=== PATIENT | female | born 1955 | race American Indian/Alaskan Native ===

== ENCOUNTER 2019-04-12 19:23 | Inpatient (IN) | payer BC, OTHER ==
[2019-04-12] MEDS ORDERED: NACL 0.9% 1000 ML 1,000 ML IV ONE (20:00)
--- NOTE | 2019-04-12 20:12 | Emergency Department Report ---
ED Neuro Deficit HPI - General Chief Complaint: Altered Mental Status Stated Complaint: AMS Time Seen by Provider: 04/12/19 19:59 Source: patient Mode of arrival: Ambulatory Limitations: Physical Limitation - History of Present Illness Initial Comments: [facility] Date of Service: 04/12/2019 19:42:54 Impression: Syncope Comments: 63 yo with syncope. LOC was unwitnessed, so could be syncope v seizure. BP low on EMS arrival, 90s/60s in ED suggestive of a hypotensive event. NIHSS 2 on initial eval, but re-eval NIHSS 0 (LOC questions were incorrect initially, corrected at end of eval). No tPA or MAX indicated as no focal deficits to suggest stroke. If any cerebral ischemia would likely be related to low BP and not a thrombotic process. Metrics: Last Known Well: 04/12/2019 18:00:00 [employer] Notification Time: 04/12/2019 19:41:02 Arrival Time: 04/12/2019 19:23:00 Stamp Time: 04/12/2019 19:42:54 Time First Login Attempt: 04/12/2019 19:46:00 Video Start Time: 04/12/2019 19:46:00 Symptoms: Dizziness, syncope NIHSS Start Assessment Time: 04/12/2019 19:54:00 Patient is not a candidate for tPA. Patient was not deemed candidate for tPA thrombolytics because of Syncope/hypotension, not stroke. Video End Time: 04/12/2019 20:02:00 CT head showed no acute hemorrhage or acute core infarct. CT head was reviewed. Advanced imaging was not obtained as the presentation was not suggestive of La rge Vessel Occlusive Disease. ER physician notified of the decision on thrombolytics management. Our recommendations are outlined below. Recommendations: BP control per ED team Recommended Scan: MRI Head Without Contrast Lipid Panel to Be Obtained, if Not Done in the Last Three Months Therapies: Physical Therapy, Occupational Therapy, Speech Therapy Assessment When Applicable Dysphaghia Screen: Swallow Evaluation, Bedside DVT prophylaxis: Lovenox or LMW Heparin Disposition: Sign Out Sign Out: Discussed with Emergency Department Provider History of Present Illness: Patient is a 63 years old Female. Patient was brought by EMS for symptoms of Dizziness, syncope 63 yo was in usual state of health today, had dinner and PM meds and reported to family at 1800 feeling dizzy. She went to lay down, and about 15 min later family heard a fall. She was found on the ground unresponsive, and EMS called. Waking up after a few minutes, but confused. Report was low BP and on arrival to ER 90s/60s. No focal weakness reported. CT head showed no acute hemorrhage or acute core infarct. CT head was reviewed. Examination: 1A: Level of Consciousness - Alert; keenly responsive + 0 1B: Ask Month and Age - Could Not Answer Either Question Correctly + 2 1C: Blink Eyes & Squeeze Hands - Performs Both Tasks + 0 2: Test Horizontal Extraocular Movements - Normal + 0 3: Test Visual [place] - No Visual Loss + 0 4: Test Facial Palsy (Use Grimace if Obtunded) - Normal symmetry + 0 5A: Test Left Arm Motor Drift - No Drift for 10 Seconds + 0 5B: Test Right Arm Motor Drift - No Drift for 10 Seconds + 0 6A: Test Left Leg Motor Drift - No Drift for 5 Seconds + 0 6B: Test Right Leg Motor Drift - No Drift for 5 Seconds + 0 7: Test Limb Ataxia (FNF/Heel-Cunha) - No Ataxia + 0 8: Test Sensation - Normal; No sensory loss + 0 9: Test Language/Aphasia - Normal; No aphasia + 0 10: Test Dysarthria - Normal + 0 11: Test Extinction/Inattention - No abnormality + 0 NIHSS Score: 2 Patient was informed the Neurology Consult would happen via TeleHealth consult by way of interactive audio and video telecommunications and consented to receiving care in this manner. Due to the immediate potential for life-threatening deterioration due to underlying acute neurologic illness, I spent 35 minutes providing critical care. This time includes time for face to face visit via telemedicine, review of medical records, imaging studies and discussion of findings with providers, the patient and/or family. Dr Felipe Ashton [facility] - Related Data Allergies/Adverse Reactions: Allergies Allergy/AdvReac Type Severity Reaction Status Date / Time No Known Allergies Allergy Unverified 04/12/19 19:47 ED Review of Systems ROS: Stated complaint: AMS Other details as noted in HPI ED Past Medical Hx - Past Medical History Previous Medical History?: Yes Hx Hypertension: Yes Hx Heart Attack/AMI: Yes Hx Congestive Heart Failure: Yes Hx COPD: Yes - Surgical History Additional Surgical History: pacemaker/defibrilator. - Social History Smoking Status: Current Every Day Smoker Substance Use Type: None ED Neuro Physical Exam - General Limitations: Physical Limitation Suspected Stroke: Yes - NIHSS Assessment Interval: Baseline 1a. Level of Consciousness: alert/keenly responsive 1b. LOC Questions: answers no questions correctly 1c. LOC Commands: performs tasks correctly 2. Best Gaze: normal 3. Visual: no visual loss 4. Facial Palsy: normal symmetrical movement 5b. Motor Arm Right: no drift 5a. Motor Arm Left: no drift 6a. Motor Leg Left: no drift 6b. Motor Leg Right: no drift 7. Limb Ataxia: absent 8. Sensory: normal 9. Best Language: no aphasia 10. Dysarthria: normal 11. Extinction/Inattention: no abnormality Total Score: 2 Stroke Severity: Minor Stroke ED Course Vital Signs 04/12/19 04/12/19 19:43 19:49 Temperature 98.3 F Pulse Rate 79 Respiratory 16 Rate Blood Pressure 151/109 Blood Pressure 87/46 [Right] O2 Sat by Pulse 98 Oximetry - Lab Data Result diagrams: 04/12/19 20:05 Lab Results 04/12/19 04/12/19 04/12/19 Range/Units 20:05 20:05 20:12 PT 13.0 (12.2-14.9) Sec. INR 1.01 (0.87-1.13) APTT 27.1 (24.2-36.6) Sec. Thrombin Time 16.6 (15.1-19.6) Sec. Sodium 137 (137-145) mmol/L Potassium 3.3 L (3.6-5.0) mmol/L Chloride 97.4 L (98-107) mmol/L Carbon Dioxide 29 (22-30) mmol/L Anion Gap 14 mmol/L BUN 15 (7-17) mg/dL Creatinine 1.2 (0.7-1.2) mg/dL Estimated GFR 55 ml/min BUN/Creatinine Ratio 13 % Glucose 125 H (65-100) mg/dL Calcium 8.6 (8.4-10.2) mg/dL Troponin T < 0.010 (0.00-0.029) ng/mL Plasma/Serum Alcohol (0-0.07) % 04/12/19 Range/Units 20:12 PT (12.2-14.9) Sec. INR (0.87-1.13) APTT (24.2-36.6) Sec. Thrombin Time (15.1-19.6) Sec. Sodium (137-145) mmol/L Potassium (3.6-5.0) mmol/L Chloride (98-107) mmol/L Carbon Dioxide (22-30) mmol/L Anion Gap mmol/L BUN (7-17) mg/dL Creatinine (0.7-1.2) mg/dL Estimated GFR ml/min BUN/Creatinine Ratio % Glucose (65-100) mg/dL Calcium (8.4-10.2) mg/dL Troponin T (0.00-0.029) ng/mL Plasma/Serum Alcohol < 0.01 (0-0.07) % Critical care attestation.: If time is entered above; I have spent that time in minutes in the direct care of this critically ill patient, excluding procedure time. ED Disposition Clinical Impression: Syncope and collapse Disposition: -09 OP ADMIT IP TO THIS HOSP Is pt being admited?: Yes Condition: Stable Instructions: Syncope (ED) Referrals: HANNA BACA MD [Primary Care Provider] - 3-5 Days
--- NOTE | 2019-04-12 20:15 | Cat Scan Report ---
CT HEAD WITHOUT CONTRAST INDICATION / CLINICAL INFORMATION: neuro deficits <6hrs or sx present upon awakening. Code stroke TECHNIQUE: All CT scans at this location are performed using CT dose reduction for ALARA by means of automated e xposure control. COMPARISON: None available. FINDINGS: HEMORRHAGE: No evidence of intracranial hemorrhage or extra-axial fluid collection. EXTRA-AXIAL SPACES: Cortical sulci, sylvian fissures and basilar cisterns have an unremarkable appear ance. VENTRICULAR SYSTEM: The ventricular system is of normal size and configuration. CEREBRAL PARENCHYMA: No areas of abnormal brain parenchymal attenuation are identified. There is no i ndication of recent infarction. Incidental note is made of physiological basal ganglia calcifications bilaterally. MIDLINE SHIFT OR HERNIATION: There is no mass effect. CEREBELLUM / BRAINSTEM: Brainstem and cerebellum have an unremarkable appearance. INTRACRANIAL VESSELS:No abnormalities are identified on this noncontrast head CT. ORBITS: visualized portions of the orbits have an unremarkable appearance. SOFT TISSUES of HEAD: No significant abnormality. CALVARIUM: Evaluation of bone windows reveals no abnormalities. PARANASAL SINUSES / MASTOID AIR CELLS: Paranasal sinuses are free from inflammatory mucosal disease. Mastoid air cells are normally pneumatized. ADDITIONAL FINDINGS: None. IMPRESSION: 1. Normal head CT without contrast. Code stroke patient: I called a report of this study to Dr. Peguero of the [facility] emergency depar tment at about 1910 Central standard time. The study had been available on the neuroradiology work li st for less than 8 minutes. Signer Name: Chandler Regan MD Signed: 04/12/2019 8:11 PM Workstation Name: [id number]
[2019-04-12 20:31] LABS: INR 1.01 (0.87-1.13); Partial Thromboplastin Time 27.1 Sec. (24.2-36.6)
[2019-04-12 20:33] LABS: BUN/Creatinine Ratio 13; Blood Urea Nitrogen 15 mg/dL (7-17); Calcium 8.6 mg/dL (8.4-10.2); Hemolysis Index 5
[2019-04-12 21:04] LABS: Basophils # (Auto) 0.1 K/mm3 (0.0-0.1); Basophils % (Auto) 1.5 % (0.0-1.8); Eosinophils # (Auto) 0.1 K/mm3 (0.0-0.4); Eosinophils % (Auto) 2.2 % (0.0-4.3); Hematocrit 35.9 % (30.3-42.9); Hemoglobin 11.5 gm/dl (10.1-14.3); Lymphocytes # (Auto) 1.8 K/mm3 (1.2-5.4); Lymphocytes % (Auto) 32.8 % (13.4-35.0); Mean Corpuscular HGB Conc 32 % (30-34); Mean Corpuscular Volume 77 fl (79-97); Monocytes # (Auto) 0.6 K/mm3 (0.0-0.8); Monocytes % (Auto) 11.3 % (0.0-7.3); Platelet Count 187 K/mm3 (140-440); Red Blood Count 4.66 M/mm3 (3.65-5.03); Red Cell Distribution Width 14.4 % (13.2-15.2)
--- NOTE | 2019-04-12 21:07 | Cat Scan Report ---
CT CERVICAL SPINE WITHOUT CONTRAST INDICATION / CLINICAL INFORMATION: Trauma. Patient fell sustaining neck injury. Neck pain. TECHNIQUE: Axial CT images were obtained through the cervical spine. Sagittal and coronal reformatted images wer e produced. All CT scans at this location are performed using CT dose reduction for ALARA by means of automated exposure control. COMPARISON: None available. FINDINGS: ALIGNMENT: Loss of the normal cervical lordosis is noted. No additional abnormalities of alignment ar e identified. VERTEBRAE: No indication of fracture. DISC SPACES: Mild loss of disc height and C4-5 level. Disc height is fairly well maintained elsewhere . INDIVIDUAL LEVEL ANALYSIS: C1-2: A well-corticated accessory ossicle lies immediately inferior to the anterior arch of C1 verteb jesus manuel. C2-3:No abnormality. C3-4: Mild anterior osteophyte formation is noted. Central spinal canal and neuroforamina are adequat elenita maintained. C4-5: Loss of disc height is noted. Prominent anterior and mild posterior osteophyte formation is obs erved. Facet and uncovertebral arthritic changes contribute to severe left-sided and moderate right-s ided neuroforaminal stenosis. Central spinal canal appears adequate in size. C5-6: Prominent anterior osteophyte formation is noted. There appears to be ossification of the poste rior longitudinal ligament along the dorsal aspect of the C5 and C6 vertebrae. Central spinal canal a nd neuroforamina are adequately maintained. C6-7: Anterior osteophyte formation is noted. No additional abnormality. C7-T1: No abnormality. CRANIOCERVICAL JUNCTION:No significant abnormality. SPINAL CANAL: No significant abnormality. PARASPINAL SOFT TISSUES: Calcified atherosclerotic plaque is present in the vicinity of the carotid b ifurcations bilaterally. ADDITIONAL FINDINGS: None. LUNG APICES: No significant abnormality of visualized lungs. IMPRESSION: 1. No indication of fracture or traumatic subluxation. 2. Widespread cervical spondylosis as described level by level above. Signer Name: Chandler Regan MD Signed: 04/12/2019 9:03 PM Workstation Name: [id number]
--- NOTE | 2019-04-12 22:50 | Emergency Department Report ---
ED Syncope HPI - General Chief Complaint: Altered Mental Status Stated Complaint: AMS Time Seen by Provider: 04/12/19 19:59 Source: patient, family Exam Limitations: no limitations - History of Present Illness Initial Comments: Mrs Jackson is a 63 yo female with hx of diabetes mellitus, CHF, COPD who presents with syncope at home. She was in her normal state of health today. Her daughter heard a loud thump. Found her passed out on the floor at home. When she awakened, Mrs. Jackson had lethargy with slurred speech. She has a history of AICD. The AICD did not fire. She did not have preceding lightheadedness or chest pain. She was in her normal state of health. She recently moved from [facility]. Her new PCP is Dr. Lazo. Mrs. Ortega is currently taking to diuretic medications including porosis 20 mg twice a day. She has started care with a new maturity checker recently. She is now taking a little blue pill. She stated that she began to feel ill after taking this new blue pill which is a second diuretic. Timing/Prior Episodes: single episode today Precipitating Factors: Positive: none Context: standing Loss of Consciousness: brief (seconds) Current Symptoms: other (lethargic hypotensive slurred speech) - Related Data Allergies/Adverse Reactions: Allergies No Known Allergies Allergy (Unverified 04/12/19 19:47) Home Medications: Ambulatory Orders Carvedilol [Coreg] 25 mg PO BID 04/12/19 Furosemide [Lasix] 20 mg PO BID 04/12/19 Metformin HCl [metFORMIN] 1,000 mg PO BID 04/12/19 Omeprazole 40 mg PO DAILY 04/12/19 Pregabalin [Lyrica] 50 mg PO BID 04/12/19 raNITIdine HCl [Zantac] 1 tab PO DAILY 04/12/19 ED Review of Systems ROS: Stated complaint: AMS Other details as noted in HPI Comment: All other systems reviewed and negative Constitutional: denies: fever, malaise Respiratory: denies: cough, shortness of breath Cardiovascular: denies: chest pain, palpitations ED Past Medical Hx - Past Medical History Previous Medical History?: Yes Hx Hypertension: Yes Hx Heart Attack/AMI: Yes Hx Congestive Heart Failure: Yes Hx COPD: Yes - Surgical History Additional Surgical History: pacemaker/defibrilator. - Social History Smoking Status: Current Every Day Smoker Substance Use Type: None - Medications Home Medications: Home Medications Medication Instructions Recorded Confirmed Last Taken Type Carvedilol [Coreg] 25 mg PO BID 04/12/19 04/12/19 Unknown History Furosemide [Lasix] 20 mg PO BID 04/12/19 04/12/19 Unknown History Metformin HCl [metFORMIN] 1,000 mg PO BID 04/12/19 04/12/19 Unknown History Omeprazole 40 mg PO DAILY 04/12/19 04/12/19 Unknown History Pregabalin [Lyrica] 50 mg PO BID 04/12/19 04/12/19 Unknown History raNITIdine HCl [Zantac] 1 tab PO DAILY 04/12/19 04/12/19 Unknown History ED Physical Exam - General Limitations: No Limitations, Physical Limitation General appearance: alert, in no apparent distress - Head Head exam: Present: atraumatic, normocephalic - Eye Eye exam: Present: normal appearance - ENT ENT exam: Present: mucous membranes moist - Neck Neck exam: Present: normal inspection, full ROM - Respiratory Respiratory exam: Present: normal lung sounds bilaterally. Absent: respiratory distress, wheezes, rales, rhonchi - Cardiovascular Cardiovascular Exam: Present: regular rate, normal rhythm, normal heart sounds. Absent: systolic murmur, diastolic murmur, rubs, gallop - GI/Abdominal GI/Abdominal exam: Present: soft, normal bowel sounds. Absent: distended, tenderness, guarding, rebound - Extremities Exam Extremities exam: Present: normal inspection - Neurological Exam Neurological exam: Present: alert, oriented X3 - Psychiatric Psychiatric exam: Present: normal affect, normal mood - Skin Skin exam: Present: warm, dry, intact, normal color. Absent: rash ED Course Vital Signs 04/12/19 04/12/19 04/12/19 19:32 19:43 19:49 Temperature 98.3 F Pulse Rate 79 Respiratory 16 16 Rate Blood Pressure 151/109 Blood Pressure 87/46 [Right] O2 Sat by Pulse 98 Oximetry 04/12/19 04/12/19 04/12/19 19:55 20:00 20:01 Temperature Pulse Rate 86 70 Respiratory 14 18 18 Rate Blood Pressure 85/50 96/51 Blood Pressure [Right] O2 Sat by Pulse 95 97 Oximetry 04/12/19 04/12/19 04/12/19 20:15 20:37 20:45 Temperature Pulse Rate 69 66 67 Respiratory 13 16 18 Rate Blood Pressure 106/42 128/32 103/34 Blood Pressure [Right] O2 Sat by Pulse 98 100 Oximetry 04/12/19 04/12/19 04/12/19 21:01 21:15 21:30 Temperature Pulse Rate 66 65 66 Respiratory 11 L 13 22 Rate Blood Pressure 94/39 90/38 99/34 Blood Pressure [Right] O2 Sat by Pulse 98 99 100 Oximetry 04/12/19 04/12/19 04/12/19 21:45 22:00 22:31 Temperature Pulse Rate 67 73 69 Respiratory 16 33 H 17 Rate Blood Pressure 96/43 103/57 111/66 Blood Pressure [Right] O2 Sat by Pulse 98 99 100 Oximetry 04/12/19 23:24 Temperature Pulse Rate 65 Respiratory 18 Rate Blood Pressure Blood Pressure 103/55 [Right] O2 Sat by Pulse 100 Oximetry ED Medical Decision Making - Lab Data Result diagrams: 04/12/19 20:05 04/12/19 20:05 Laboratory Results - last 24 hr 04/12/19 04/12/19 04/12/19 20:05 20:05 20:05 WBC 5.5 RBC 4.66 Hgb 11.5 Hct 35.9 MCV 77 L MCH 25 L MCHC 32 RDW 14.4 Plt Count 187 Lymph % (Auto) 32.8 Bland % (Auto) 11.3 H Eos % (Auto) 2.2 Baso % (Auto) 1.5 Lymph # 1.8 Bland # 0.6 Eos # 0.1 Baso # 0.1 Seg Neutrophils % 52.2 Seg Neutrophils # 2.9 PT INR APTT Thrombin Time 16.6 Sodium 137 Potassium 3.3 L Chloride 97.4 L Carbon Dioxide 29 Anion Gap 14 BUN 15 Creatinine 1.2 Estimated GFR 55 BUN/Creatinine Ratio 13 Glucose 125 H Lactic Acid Calcium 8.6 Troponin T < 0.010 Plasma/Serum Alcohol 04/12/19 04/12/19 04/12/19 20:12 20:12 20:41 WBC RBC Hgb Hct MCV MCH MCHC RDW Plt Count Lymph % (Auto) Bland % (Auto) Eos % (Auto) Baso % (Auto) Lymph # Bland # Eos # Baso # Seg Neutrophils % Seg Neutrophils # PT 13.0 INR 1.01 APTT 27.1 Thrombin Time Sodium Potassium Chloride Carbon Dioxide Anion Gap BUN Creatinine Estimated GFR BUN/Creatinine Ratio Glucose Lactic Acid 1.30 Calcium Troponin T Plasma/Serum Alcohol < 0.01 - EKG Data 04/12/19 22:48 EKG obtained 1932 70 beats a minute normal axis normal intervals no ST elevation nonspecific T wave pattern no signs of ischemia poor R-wave progression in the anterior leads low voltage QRS - Radiology Data Radiology results: report reviewed CT head normal CT cervical spine without acute process My interpretation of chest radiograph AP portable one view: Interstitial fullness cardiac device in place no infiltrate no effusion, prosthesis present in the left shoulder - Medical Decision Making Manuel is a 63-year-old female with history of CHF, COPD, diabetes with AICD in place who presents with syncope and hypotension. No evidence of septic shock, cardiogenic shock. I suspect medication as the cause of hypotension. She was in her normal state of health prior to syncope episode today. No indication clinically of pulmonary embolism. Hypotension resolved with IV fluid therapy. Admitted to Dr. Lazo's service in stable condition to telemetry. Code stroke was initiated upon arrival due to slurred speech. She did have lethargy upon arrival reflective of hypotensive status. I agreed with Teleneurologist that her presentation is indicative of acute illness not acute CVA. I suspect that aggressive diuresis with 2 diuretics is the cause of her hypotension. Critical care attestation.: If time is entered above; I have spent that time in minutes in the direct care of this critically ill patient, excluding procedure time. ED Disposition Clinical Impression: Syncope and collapse, Hypotension, CHF (congestive heart failure) Disposition: OP ADMIT IP TO THIS HOSP Is pt being admited?: Yes Does the pt Need Aspirin: No Condition: Stable - Assessment Assessment Interval: Baseline - Level of Consciousness 1a. Level of Consciousness: alert/keenly responsive - LOC Questions 1b. LOC Questions: answers both correctly - LOC Command 1c. LOC Commands: performs tasks correctly - Best Gaze 2. Best Gaze: normal - Visual 3. Visual: no visual loss - Facial Palsy 4. Facial Palsy: normal symmetrical movement - Motor Arm 5a. Motor Arm Left: no drift 5b. Motor Arm Right: no drift - Motor Leg 6a. Motor Leg Left: no drift 6b. Motor Leg Right: no drift - Limb Ataxia 7. Limb Ataxia: absent - Sensory 8. Sensory: normal - Best Language 9. Best Language: no aphasia - Dysarthria 10. Dysarthria: normal - Extinction and Inattention 11. Extinction/Inattention: no abnormality - Scoring Total Score: 0 Stroke Severity: No Stroke Symptoms
--- NOTE | 2019-04-13 02:19 | XRay Report ---
CHEST 1 VIEW [id number] INDICATION / CLINICAL INFORMATION: hypotension. COMPARISON: None available. FINDINGS: SUPPORT DEVICES: Unipolar transvenous pacer is seen with lead tips appearing to be in satisfactory po sition. HEART / MEDIASTINUM: No significant abnormality. LUNGS / PLEURA: Mild chronic changes are seen in the lung chopra. No areas of consolidation are seen. No pneumothorax. ADDITIONAL FINDINGS: Left shoulder prosthesis is noted. IMPRESSION: No significant acute abnormality Signer Name: Ilya Dawson MD Signed: 04/13/2019 2:15 AM Workstation Name: [id number]
[2019-04-13 05:38] LABS: Amphetamine Screen,Urine PRESUMPTIVE NEGATIVE; Benzodiazepines Screen,Urine PRESUMPTIVE NEGATIVE; Cannabinoid Screen,Urine PRESUMPTIVE NEGATIVE; Cocaine Screen,Urine PRESUMPTIVE NEGATIVE; Methadone Screen,Urine PRESUMPTIVE NEGATIVE; Opiate Screen,Urine PRESUMPTIVE NEGATIVE
--- NOTE | 2019-04-13 08:50 | History and Physical Report ---
History of Present Illness Date of examination: 04/13/19 Date of admission: 04/12/19 22:53 Chief complaint: Syncope - 1 day duration History of present illness: Patient is 63-year-old lady was a history of congestive heart failure status post AICD placement, COPD, asthma, and diabetes mellitus who presented emergency department on account of having passed out on 04/12/2019. Patient stated that she was at home when she started feeling dizzy. Went to lay down in bed at about 4:45 PM. Got up to use the bathroom when she passed out. Her daughter heard a loud noise. Went and found her passed out on the floor at home. When she awakened, she was lethargic with slurred speech. She has a history of AICD. The AICD did not fire. EMS was called in and brought to the emergency department where she regained consciousness. Denies any chest pain or shortness of breath. Denies any orthopnea paroxysmal nocturnal dyspnea. Patient recently moved from [facility] to [place] to leave with his children. Has been following up with a new dumpster driver has started metolazone. Patient stated that she hasn't been feeling well since she started metolazone. On admission to the emergency department blood pressure patient was found to be hypotensive with a blood pressure of 85/50. Patient was given a bolus of normal saline that slightly improved the blood pressure 103/34. Patient was too drowsy. CT scan of the head was unremarkable as well as CT scan of the neck. Had hypokalemia with a potassium of 3.3. ProBNP was 20.8. Initial troponin was normal at less than 0.01. Glucose was elevated at 125. Admission was therefore requested for further management. Past History Past Medical History: COPD, diabetes, heart failure Past Surgical History: Other (AICD placement, left shoulder replacement.) Social history: smoking. denies: alcohol abuse Family history: other (Her mother had COPD and CHF. Father from lung cancer.) Medications and Allergies Allergies Allergy/AdvReac Type Severity Reaction Status Date / Time No Known Allergies Allergy Unverified 04/12/19 19:47 Home Medications Medication Instructions Recorded Confirmed Last Taken Type Carvedilol [Coreg] 25 mg PO BID 04/12/19 04/12/19 Unknown History Furosemide [Lasix] 20 mg PO BID 04/12/19 04/12/19 Unknown History Metformin HCl [metFORMIN] 1,000 mg PO BID 04/12/19 04/12/19 Unknown History Omeprazole 40 mg PO DAILY 04/12/19 04/12/19 Unknown History Pregabalin [Lyrica] 50 mg PO BID 04/12/19 04/12/19 Unknown History raNITIdine HCl [Zantac] 1 tab PO DAILY 04/12/19 04/12/19 Unknown History Active Meds: Review of systems Constitutional: Well Nourished and Well developed. Head: NC/ AT Eyes: Denies any visual impairments. No discharge from the eyes Nose: Denies any rhinorrhea or epistaxis Throats: Denies any post nasal drainage. Ears: Denies any hearing deficits Cardiovascular system: Denies any chest pain, shortness of breath, orthopnea, paroxysmal nocturnal dyspnea, or palpitation. Respiratory system: Denies any cough, difficulty breathing, wheezing, pleuritic chest pain, Gastrointestinal system: Denies any abdominal pain, nausea vomiting, hematemesis or melena. Neurological system: Had syncope No slurred speech, facial droop, lateralizing weakness Genitalia system: Denies any dysuria, urinary frequency or urgency, urethral discharge Skin: No rashes, hyperpigmented spots. Hematological: Denies any cervical tenderness hemorrhages or petechia. Immunological: Denies any multiple septic spots, Lymphatic: Denies any generalized lymphadenopathy. Endocrine: Denies any polyuria, polydipsia, polyphagia. No heat or cold intolerance. Musculoskeletal system: No joint pain or swelling. Psych: No visual, tactile, auditory or hallucination Exam - Physical Exam Narrative exam: Constitutional: Well-nourished well-developed. In no distress Head: Normocephalic atraumatic Eyes: Pupils are equal round and reactive to light Nose: No enlarged turbinates, no septal deviation. Mouth: Angular stomatitis bilaterally. Moist mucous membranes. Neck: Supple no thyromegaly. No bruit. No JVD Heart: Regular rate and rhythm, S1-S2 normal. No rubs murmurs or gallop Lungs: Clear to auscultation bilaterally. no rales or rhonchi Abdomen: Soft, nontender. Bowel sound are present. Extremities: No edema, no cyanosis, no clubbing. Neuro: Alert oriented Oriented x3. No focal sensory or motor deficit. Skin: No rashes or hyperpigmented spots Musculoskeletal system: No joint pain or swelling Hematological: No petechia or subcutanous hemorrhages. Immunological: No multiple septic spots on the skin Lymphatic: No generalized lymphadenopathy Psychiatry: Euthymic. Calm. - Constitutional Vitals: Temp Pulse Resp BP Pulse Ox 97.5 F L 54 L 18 84/36 100 04/13/19 03:33 04/13/19 03:33 04/13/19 03:33 04/13/19 03:33 04/13/19 03:33 Results - Labs CBC & Chem 7: 04/12/19 20:05 04/12/19 20:05 Labs: Abnormal lab results 04/12/19 04/12/19 Range/Units 20:05 20:05 MCV 77 L (79-97) fl MCH 25 L (28-32) pg [place] % (Auto) 11.3 H (0.0-7.3) % Potassium 3.3 L (3.6-5.0) mmol/L Chloride 97.4 L (98-107) mmol/L Glucose 125 H (65-100) mg/dL Assessment and Plan Patient is 63-year-old lady was a history of congestive heart failure status post AICD placement, COPD, asthma, and diabetes mellitus who presented emergency department on account of having passed out on 04/12/2019. Patient stated that she was at home when she started feeling dizzy. Went to lay down in bed at about 4:45 PM. Got up to use the bathroom when she passed out. Her daughter heard a loud noise. Went and found her passed out on the floor at home. When she awakened, she was lethargic with slurred speech. She has a history of AICD. The AICD did not fire. EMS was called in and brought to the emergency department where she regained consciousness. Denies any chest pain or shortness of breath. Denies any orthopnea paroxysmal nocturnal dyspnea. Patient recently moved from [facility] to [place] to leave with his children. Has been following up with a new dumpster driver has started metolazone. Patient stated that she hasn't been feeling well since she started metolazone. On admission to the emergency department blood pressure patient was found to be hypotensive with a blood pressure of 85/50. Patient was given a bolus of normal saline that slightly improved the blood pressure 103/34. Patient was too dr sexton. CT scan of the head was unremarkable as well as CT scan of the neck. Had hypokalemia with a potassium of 3.3. ProBNP was 20.8. Initial troponin was normal at less than 0.01. Glucose was elevated at 125. Admission was therefore requested for further management. - Syncope likely cardiac in origin from hypotension vs none firing of AICD Interrogates the patient's AICD Obtain carotid Doppler and echocardiogram - Systolic heart failure status post AICD placement We will adjust doses of beta blockers, ACEI and gentle diureses because of hypotension Obtain cardiology consult - Hypokalemia supplement and rechecK and Mg - Diabetes mellitus Obtain A1c Low-dose sliding scale insulin Consistent collided diet - COPD Continue bronchodilators O2 sat on room air to be measured If below 90. Commence patient on supplemental oxygen - Bilateral and angular stomatitis Apply Ketoconazole cream after meals and at bedtime - DVT prophylaxis with Lovenox and GI with Pepcid CODE STATUS: Patient is full code Time spent during this admission process is 40 minutes
[2019-04-13] MEDS: PULMICORT IH SCH ×2 (09:22→20:40)
[2019-04-13] MEDS ORDERED: SODIUM CHLORIDE FLUSH SYRINGE 10 ML IV PRN (09:30)
[2019-04-13] MEDS ORDERED: TYLENOL PO PRN (09:30)
[2019-04-13] MEDS ORDERED: ZOFRAN IV PRN (09:30)
[2019-04-13] MEDS ORDERED: NON-FORMULARY (Metformin Hcl [Metformin] 1,000 MG) PO SCH (10:00)
[2019-04-13] MEDS ORDERED: KCL 20MEQ/100ML 20 MEQ/100 ML BAG IV SCH (10:00)
[2019-04-13 10:03] LABS: Basophils # (Auto) 0.1 K/mm3 (0.0-0.1); Basophils % (Auto) 1.9 % (0.0-1.8); Eosinophils # (Auto) 0.1 K/mm3 (0.0-0.4); Eosinophils % (Auto) 2.4 % (0.0-4.3); Hematocrit 36.4 % (30.3-42.9); Hemoglobin 11.7 gm/dl (10.1-14.3); Lymphocytes # (Auto) 1.7 K/mm3 (1.2-5.4); Lymphocytes % (Auto) 33.3 % (13.4-35.0); Mean Corpuscular HGB Conc 32 % (30-34); Mean Corpuscular Volume 76 fl (79-97); Monocytes # (Auto) 0.4 K/mm3 (0.0-0.8); Monocytes % (Auto) 8.3 % (0.0-7.3); Platelet Count 173 K/mm3 (140-440); Red Blood Count 4.76 M/mm3 (3.65-5.03)
[2019-04-13 10:27] LABS: Alanine Aminotransferase 6 units/L (7-56); Albumin 3.7 g/dL (3.9-5); BUN/Creatinine Ratio 17; Blood Urea Nitrogen 12 mg/dL (7-17); Calcium 9.1 mg/dL (8.4-10.2); Hemolysis Index 2
[2019-04-13 10:37] LABS: Chol/HDL Ratio 2.82 %
--- NOTE | 2019-04-13 11:05 | Consultation ---
History of Present Illness Consult date: 04/13/19 Consult reason: syncope History of present illness: Patient is a 63-year old female who recently moved from [facility], who presented with syncope. Patient reports feeling dizzy with chest pain and shortness of breath on yesterday. Patient reports she got up to use the restroom and passed out. Patient has a history of dilated cardiomyopathy and has a [employer] cardiac defibrillator insitu. She denies AICD discharge. Noted hypotensive on present ation, systolic BP at 85. Head CT scan reports no acute intracranial abnormalities. Chest x-ray is negative. An EKG is sinus rhythm with low voltage. Past History Past Medical History: COPD, diabetes, heart failure Past Surgical History: Other (AICD placement, left shoulder replacement.) Social history: smoking. denies: alcohol abuse Family history: other (Her mother had COPD and CHF. Father from lung cancer.) Medications and Allergies Allergies Allergy/AdvReac Type Severity Reaction Status Date / Time No Known Allergies Allergy Unverified 04/12/19 19:47 Home Medications Medication Instructions Recorded Confirmed Last Taken Type Carvedilol [Coreg] 25 mg PO BID 04/12/19 04/12/19 Unknown History Furosemide [Lasix] 20 mg PO BID 04/12/19 04/12/19 Unknown History Metformin HCl [metFORMIN] 1,000 mg PO BID 04/12/19 04/12/19 Unknown History Omeprazole 40 mg PO DAILY 04/12/19 04/12/19 Unknown History Pregabalin [Lyrica] 50 mg PO BID 04/12/19 04/12/19 Unknown History raNITIdine HCl [Zantac] 1 tab PO DAILY 04/12/19 04/12/19 Unknown History Active Meds: Active Medications Acetaminophen (Tylenol) 650 mg PO Q4H PRN PRN Reason: Pain MILD(1-3)/Fever >100.5/BROWN Budesonide (Pulmicort) 0.5 mg IH Q12HRT DEVIKA Last Admin: 04/13/19 09:22 Dose: 0.5 mg Documented by: Carvedilol (Coreg) 3.125 mg PO BID DEVIKA Enoxaparin Sodium (Lovenox) 40 mg SUB-Q QDAY DEVIKA Furosemide (Lasix) 20 mg IV QDAY DEVIKA Potassium Chloride (Kcl 10meq/100ml) 10 meq in 100 mls @ 100 mls/hr IV Q1H DEVIKA Stop: 04/13/19 14:29 Ketoconazole (Nizoral) 1 applic TP BID DEVIKA Metformin HCl (Glucophage) 1,000 mg PO BIDDIAB DEVIKA Ondansetron HCl (Zofran) 4 mg IV Q8H PRN PRN Reason: Nausea And Vomiting Potassium Chloride (K-Dur) 20 meq PO QDAY [facility] Sodium Chloride (Sodium Chloride Flush Syringe 10 Ml) 10 ml IV BID DEVIKA Sodium Chloride (Sodium Chloride Flush Syringe 10 Ml) 10 ml IV PRN PRN PRN Reason: LINE FLUSH Physical Examination Vital Signs Resp 16 04/12/19 19:32 General appearance: no acute distress HEENT: Positive: PERRL Neck: Positive: trachea midline Cardiac: Positive: Reg Rate and Rhythm Lungs: Positive: Decreased Breath Sounds Neuro: Positive: Grossly Intact Extremities: Absent: edema Results 04/13/19 09:38 04/13/19 09:38 Cardiac Enzymes 04/13/19 Range/Units 09:38 AST 12 (5-40) units/L Coagulation 04/12/19 Range/Units 20:12 PT 13.0 (12.2-14.9) Sec. INR 1.01 (0.87-1.13) APTT 27.1 (24.2-36.6) Sec. Lipids 04/13/19 Range/Units 09:38 Triglycerides 87 (2-149) mg/dL Cholesterol 144 (50-199) mg/dL HDL Cholesterol 51 (40-59) mg/dL Cholesterol/HDL Ratio 2.82 % CBC 04/12/19 04/13/19 Range/Units 20:05 09:38 WBC 5.5 5.2 (4.5-11.0) K/mm3 RBC 4.66 4.76 (3.65-5.03) M/mm3 Hgb 11.5 11.7 (10.1-14.3) gm/dl Hct 35.9 36.4 (30.3-42.9) % Plt Count 187 173 (140-440) K/mm3 Lymph # 1.8 1.7 (1.2-5.4) K/mm3 [place] # 0.6 0.4 (0.0-0.8) K/mm3 Eos # 0.1 0.1 (0.0-0.4) K/mm3 Baso # 0.1 0.1 (0.0-0.1) K/mm3 Comprehensive Metabolic Panel 04/12/19 04/13/19 Range/Units 20:05 09:38 Sodium 137 138 (137-145) mmol/L Potassium 3.3 L 3.4 L (3.6-5.0) mmol/L Chloride 97.4 L 99.7 (98-107) mmol/L Carbon Dioxide 29 28 (22-30) mmol/L BUN 15 12 (7-17) mg/dL Creatinine 1.2 0.7 (0.7-1.2) mg/dL Glucose 125 H 98 (65-100) mg/dL Calcium 8.6 9.1 (8.4-10.2) mg/dL AST 12 (5-40) units/L ALT 6 L (7-56) units/L Alkaline Phosphatase 72 (35-129) units/L Total Protein 6.4 (6.3-8.2) g/dL Albumin 3.7 L (3.9-5) g/dL Assessment and Plan Syncope Hx of Dilated CMP Presence of AICD ([employer]) Hypertension but currently hypotensive Recommendations: Resume medical therapy for dilated cardiomyopathy when blood pressure allows. We will get an ICD interrogation. Check a TSH. Obtain a carotid duplex and echocardiogram for LVEF assessment.
[2019-04-13] MEDS ORDERED: NACL 0.9% 1000 ML 1,000 ML ONE ×2 (11:11→18:06)
[2019-04-13] MEDS: LOVENOX SUB-Q SCH (11:38)
[2019-04-13] MEDS: K-DUR PO SCH (11:40)
[2019-04-13] MEDS: KCL 10MEQ/100ML 10 MEQ/100 ML BAG IV SCH ×4 (11:45→18:25)
[2019-04-13] MEDS: NIZORAL TP SCH ×2 (15:04→21:13)
[2019-04-13] MEDS: COREG PO SCH ×2 (15:38→21:14)
[2019-04-13] MEDS: ENTRESTO 49-51 MG PO SCH ×2 (15:38→21:13)
[2019-04-13] MEDS: SODIUM CHLORIDE FLUSH SYRINGE 10 ML IV SCH ×2 (15:39→21:13)
[2019-04-13] MEDS: LASIX IV SCH (15:39)
[2019-04-13] MEDS: GLUCOPHAGE PO SCH (18:24)
[2019-04-14 04:35] LABS: Albumin 3.6 g/dL (3.9-5)
[2019-04-14 05:11] LABS: Mean Corpuscular HGB Conc 30 % (30-34); Mean Corpuscular Volume 80 fl (79-97); Platelet Count 183 K/mm3 (140-440); Red Blood Count 5.11 M/mm3 (3.65-5.03); Red Cell Distribution Width 14.9 % (13.2-15.2)
[2019-04-14 05:13] LABS: Hematocrit 40.7 % (30.3-42.9); Hemoglobin 12.4 gm/dl (10.1-14.3)
[2019-04-14 05:27] LABS: Alanine Aminotransferase 6 units/L (7-56); BUN/Creatinine Ratio 11; Blood Urea Nitrogen 8 mg/dL (7-17); Calcium 9.3 mg/dL (8.4-10.2); Hemolysis Index 14
--- NOTE | 2019-04-14 07:56 | Vascular Lab Report ---
BILATERAL CAROTID DOPPLER ULTRASOUND INDICATION : syncope with collapse TECHNIQUE: Grayscale and color Doppler imaging performed through the neck. COMPARISON: None FINDINGS: Right: There is moderate partially calcified plaque is identified in the carotid bulb. Peak systoli c velocity in the CCA is 58 cm/s with end-diastolic velocity of 19 cm/s. Peak systolic velocity in th e proximal ICA is 83 cm/s with end-diastolic velocity of 35 cm/s. ICA to CCA ratio is less than 2. Th ere is antegrade flow in the ECA and the vertebral artery. Left: There are mild scattered partially calcified plaques in the mid to distal CCA. Peak systolic ve locity in the CCA is 53 cm/s with end-diastolic velocity of 16 cm/s. Peak systolic velocity in the pr oximal ICA is 100 cm/s with end-diastolic velocity of 40 cm/s. ICA to CCA ratio is less than 2. There is antegrade flow in the ECA and the vertebral artery. IMPRESSION: No hemodynamically significant stenosis by NASCET criteria. There is less than 50% lumina l narrowing in both carotid systems by velocity standards. Signer Name: Camron Swanson Jr, MD Signed: 04/14/2019 7:51 AM Workstation Name: [id number]
[2019-04-14] MEDS: GLUCOPHAGE PO SCH ×2 (09:03→17:38)
--- NOTE | 2019-04-14 09:13 | Progress Note ---
Assessment and Plan Syncope Hx of Dilated CMP, resolving interrogation reveals a normal device function; no ICD discharge. Presence of AICD ([employer]) Hypertension but hypotensive on presentation An echocardiogram shows a normal LVEF 50-55%. Subjective Date of service: 04/14/19 Interval history: Patient is resting in bed comfortably. ICD interrogation has been completed. Current blood pressure of 102/45. Objective Vital Signs Temp Pulse Pulse Resp Resp BP Pulse Ox 04/14/19 03:32 98.0 F 56 L 18 102/45 100 04/14/19 00:00 60 04/13/19 22:51 98.2 F 51 L 18 92/37 100 04/13/19 21:14 56 L 102/45 04/13/19 20:42 64 20 04/13/19 20:41 99 04/13/19 20:03 98.1 F 59 L 18 102/45 100 04/13/19 17:38 98.1 F 58 L 16 104/47 99 04/13/19 14:54 98.3 F 61 14 98/44 97 04/13/19 09:39 68 20 04/13/19 09:26 99 - Physical Examination General: No Apparent Distress HEENT: Positive: PERRL Neck: Positive: trachea midline Cardiac: Positive: Reg Rate and Rhythm Lungs: Positive: Decreased Breath Sounds Neuro: Positive: Grossly Intact Extremities: Absent: edema - Labs and Meds Cardiac Enzymes 04/13/19 04/14/19 Range/Units 09:38 03:45 AST 12 15 (5-40) units/L Lipids 04/13/19 Range/Units 09:38 Triglycerides 87 (2-149) mg/dL Cholesterol 144 (50-199) mg/dL HDL Cholesterol 51 (40-59) mg/dL Cholesterol/HDL Ratio 2.82 % CBC 04/13/19 04/14/19 Range/Units 09:38 03:45 WBC 5.2 4.0 L (4.5-11.0) K/mm3 RBC 4.76 5.11 H (3.65-5.03) M/mm3 Hgb 11.7 12.4 (10.1-14.3) gm/dl Hct 36.4 40.7 (30.3-42.9) % Plt Count 173 183 (140-440) K/mm3 Lymph # 1.7 Customer Sales Advisor (1.2-5.4) K/mm3 [place] # 0.4 Customer Sales Advisor (0.0-0.8) K/mm3 Eos # 0.1 Customer Sales Advisor (0.0-0.4) K/mm3 Baso # 0.1 Customer Sales Advisor (0.0-0.1) K/mm3 Comprehensive Metabolic Panel 04/13/19 04/13/19 04/14/19 Range/Units 09:38 20:07 03:45 Sodium 138 139 (137-145) mmol/L Potassium 3.4 L 3.9 4.1 (3.6-5.0) mmol/L Chloride 99.7 102.5 (98-107) mmol/L Carbon Dioxide 28 25 (22-30) mmol/L BUN 12 8 (7-17) mg/dL Creatinine 0.7 0.7 (0.7-1.2) mg/dL Glucose 98 96 (65-100) mg/dL Calcium 9.1 9.3 (8.4-10.2) mg/dL AST 12 15 (5-40) units/L ALT 6 L 6 L (7-56) units/L Alkaline Phosphatase 72 71 (35-129) units/L Total Protein 6.4 6.6 (6.3-8.2) g/dL Albumin 3.7 L 3.6 L (3.9-5) g/dL
[2019-04-14] MEDS: LOVENOX SUB-Q SCH (09:36)
[2019-04-14] MEDS: SODIUM CHLORIDE FLUSH SYRINGE 10 ML IV SCH ×2 (09:36→22:16)
[2019-04-14] MEDS: NIZORAL TP SCH ×2 (09:39→22:15)
[2019-04-14] MEDS: PULMICORT IH SCH ×2 (09:40→21:14)
--- NOTE | 2019-04-14 09:54 | Progress Note ---
Assessment and Plan Patient is 63-year-old lady was a history of congestive heart failure status post AICD placement, COPD, asthma, and diabetes mellitus who presented emergency department on account of having passed out on 04/12/2019. Patient stated that s he was at home when she started feeling dizzy. Went to lay down in bed at about 4:45 PM. Got up to use the bathroom when she passed out. Her daughter heard a loud noise. Went and found her passed out on the floor at home. When she awakened, she was lethargic with slurred speech. She has a history of AICD. The AICD did not fire. EMS was called in and brought to the emergency department where she regained consciousness. Denies any chest pain or shortness of breath. Denies any orthopnea paroxysmal nocturnal dyspnea. Patient recently moved from [facility] to [place] to leave with his children. Has been following up with a new systems technologist has started metolazone. Patient stated t hat she hasn't been feeling well since she started metolazone. On admission to the emergency department blood pressure patient was found to be hypotensive with a blood pressure of 85/50. Patient was given a bolus of normal saline that slightly improved the blood pressure 103/34. Patient was too drowsy. CT scan of the head was unremarkable as well as CT scan of the neck. Had hypokalemia with a potassium of 3.3. ProBNP was 20.8. Initial troponin was normal at less than 0.01. Glucose was elevated at 125. Admission was therefore requested for further management. - Syncope likely cardiac in origin from hypotension vs none firing of AICD Interrogation of AICD showd no discharged carotid Doppler unremarkable Echocardiogram normal EF 50-55% - Systolic heart failure from Cardiomyopathy status post AICD placement We will adjust doses of beta blockers, ACEI and gentle diureses because of hypotension Obtain cardiology consult - Hypokalemia - corrected supplement and rechecK and Mg - Hypotension Hold all antihypetensives - Diabetes mellitus A1c 6.7% Low-dose sliding scale insulin Consistent collided diet - COPD Continue bronchodilators O2 sat on room air to be measured If below 90. Commence patient on supplemental oxygen - Bilateral and angular stomatitis Apply Ketoconazole cream after meals and at bedtime - DVT prophylaxis with Lovenox and GI with Pepcid CODE STATUS: Patient is full code Time spent during this admission process is 40 minutes Subjective Date of service: 04/14/19 Principal diagnosis: syncope, hypokalemia, T2DM Interval history: no new complaint. Pt seen and examined Objective - Exam Narrative Exam: Constitutional: Well-nourished well-developed. In no distress Head: Normocephalic atraumatic Eyes: Pupils are equal round and reactive to light Nose: No enlarged turbinates, no septal deviation. Mouth: Angular stomatitis bilaterally. Moist mucous membranes. Neck: Supple no thyromegaly. No bruit. No JVD Heart: Regular rate and rhythm, S1-S2 normal. No rubs murmurs or gallop Lungs: Clear to auscultation bilaterally. no rales or rhonchi Abdomen: Soft, nontender. Bowel sound are present. Extremities: No edema, no cyanosis, no clubbing. Neuro: Alert oriented Oriented x3. No focal sensory or motor deficit. Skin: No rashes or hyperpigmented spots Musculoskeletal system: No joint pain or swelling Hematological: No petechia or subcutanous hemorrhages. Immunological: No multiple septic spots on the skin Lymphatic: No generalized lymphadenopathy Psychiatry: Euthymic. Calm. - Constitutional Vitals: Vital Signs - 12hr 04/13/19 04/14/19 04/14/19 22:51 00:00 03:32 Temperature 98.2 F 98.0 F Pulse Rate 51 L 60 56 L Respiratory 18 18 Rate Blood Pressure 92/37 102/45 O2 Sat by Pulse 100 100 Oximetry - Labs CBC & Chem 7: 04/14/19 03:45 04/14/19 03:45 Labs: Abnormal lab results 04/13/19 04/13/19 04/13/19 Range/Units 09:38 09:38 09:38 WBC (4.5-11.0) K/mm3 RBC (3.65-5.03) M/mm3 MCV 76 L (79-97) fl MCH 25 L (28-32) pg [place] % (Auto) 8.3 H (0.0-7.3) % Baso % (Auto) 1.9 H (0.0-1.8) % Potassium 3.4 L (3.6-5.0) mmol/L POC Glucose (70-105) Hemoglobin A1c 6.7 H (4-6) % ALT 6 L (7-56) units/L Albumin 3.7 L (3.9-5) g/dL 04/13/19 04/13/19 04/14/19 Range/Units 17:21 20:53 03:45 WBC 4.0 L (4.5-11.0) K/mm3 RBC 5.11 H (3.65-5.03) M/mm3 MCV (79-97) fl MCH 24 L (28-32) pg [place] % (Auto) (0.0-7.3) % Baso % (Auto) (0.0-1.8) % Potassium (3.6-5.0) mmol/L POC Glucose 124 H 121 H (70-105) Hemoglobin A1c (4-6) % ALT (7-56) units/L Albumin (3.9-5) g/dL 04/14/19 Range/Units 03:45 WBC (4.5-11.0) K/mm3 RBC (3.65-5.03) M/mm3 MCV (79-97) fl MCH (28-32) pg [place] % (Auto) (0.0-7.3) % Baso % (Auto) (0.0-1.8) % Potassium (3.6-5.0) mmol/L POC Glucose (70-105) Hemoglobin A1c (4-6) % ALT 6 L (7-56) units/L Albumin 3.6 L (3.9-5) g/dL
[2019-04-14] MEDS: COREG PO SCH ×2 (10:16→22:17)
[2019-04-14] MEDS: ENTRESTO 49-51 MG PO SCH ×2 (10:17→22:18)
[2019-04-14] MEDS: K-DUR PO SCH (10:17)
[2019-04-14] MEDS: LASIX IV SCH (10:17)
[2019-04-15] MEDS: GLUCOPHAGE PO SCH (08:46)
--- NOTE | 2019-04-15 08:46 | Discharge Summary ---
Providers - Providers Date of Admission: 04/12/19 22:53 Date of discharge: 04/15/19 Attending physician: JULIET CLAROS 04/13/19 08:59 Consult to Physician [CONS] Routine Comment: Consulting Provider: DONNA GONZALES Physician Instructions: Reason For Exam: CHF s/p AICD [facility] Reason for admission: syncope Condition: Stable Pertinent studies: CT head that showed no fracture or interracial abnormality Procedures: none Hospital course: Patient is 63-year-old lady was a history of congestive heart failure status post AICD placement, COPD, asthma, and diabetes mellitus who presented emergency department on account of having passed out on 04/12/2019. Patient stated that she was at home when she started feeling dizzy. Went to lay down in bed at about 4:45 PM. Got up to use the bathroom when she passed out. Her daughter heard a loud noise. Went and found her passed out on the floor at home. When she awakened, she was lethargic with slurred speech. She has a history of AICD. The AICD did not fire. EMS was called in and brought to the emergency department where she regained consciousness. Denies any chest pain or shortness of breath. Denies any orthopnea paroxysmal nocturnal dyspnea. Patient recently moved from [facility] to [place] to leave with his children. Has been following up with a [employer] consultant has started metolazone. Patient stated that she hasn't been feeling well since she started metolazone. On admission to the emergency department blood pressure patient was found to be hypotensive with a blood pressure of 85/50. Patient was given a bolus of normal saline that slightly improved the blood pressure 103/34. Patient was too drowsy. CT scan of the head was unremarkable as well as CT scan of the neck. Had hypokalemia with a potassium of 3.3. ProBNP was 20.8. Initial troponin was normal at less than 0.01. Glucose was elevated at 125. Admission was therefore requested for further management. On admission, pt was commenced on potassium supplement. Dose of antihypertensives were reduced. ECHO showed EF 50-55%. Cardiology consult. AICD interrogated and no evidence on discharge identified. Carotid doppler were normal. Syncope resolved. BP improved to 111/63. Pt had angular stomatitis that for which treatment was commence with antifungal. Pt is therefore discharged today to f/u with PCP in 3-4 day and Cardiology in 7 days. Disposition: DC-01 TO HOME OR SELFCARE Time spent for discharge: 35 min - Discharge Diagnoses (1) Cardiomyopathy Status: Acute (2) Hypotension Status: Acute (3) Syncope and collapse Status: Acute (4) Diabetes 1.5, managed as type 2 Status: Acute (5) COPD (chronic obstructive pulmonary disease) with acute bronchitis Status: Acute Core Measure Documentation - Palliative Care Palliative Care/ Comfort Measures: Not Applicable - Core Measures Any of the following diagnoses?: none Exam - Physical Exam Narrative exam: Constitutional: Well-nourished well-developed. In no distress Head: Normocephalic atraumatic Eyes: Pupils are equal round and reactive to light Nose: No enlarged turbinates, no septal deviation. Mouth: Angular stomatitis bilaterally. Moist mucous membranes. Neck: Supple no thyromegaly. No bruit. No JVD Heart: Regular rate and rhythm, S1-S2 normal. No rubs murmurs or gallop Lungs: Clear to auscultation bilaterally. no rales or rhonchi Abdomen: Soft, nontender. Bowel sound are present. Extremities: No edema, no cyanosis, no clubbing. Neuro: Alert oriented Oriented x3. No focal sensory or motor deficit. Skin: No rashes or hyperpigmented spots Musculoskeletal system: No joint pain or swelling Hematological: No petechia or subcutanous hemorrhages. Immunological: No multiple septic spots on the skin Lymphatic: No generalized lymphadenopathy Psychiatry: Euthymic. Calm. - Constitutional Vitals: Temp Pulse Resp BP Pulse Ox 99.2 F 58 L 20 111/62 97 04/15/19 06:02 04/15/19 06:02 04/15/19 06:02 04/15/19 06:02 04/15/19 06:02 Plan Activity: fall precautions Weight Bearing Status: Weight Bear as Tolerated Diet: low salt, diabetic Follow up with: JULIET CLAROS MD [Staff Physician] - 7 Days Prescriptions: Carvedilol [Coreg] 3.125 mg PO BID #60 tablet Sacubitril/Valsartan [Entresto 49-51 mg] 1 each PO BID #30 tablet metFORMIN [Glucophage] 1,000 mg PO BIDDIAB #60 tablet Potassium Chloride [K-Dur] 20 meq PO QDAY #20 tablet Furosemide [Lasix TAB] 20 mg PO DAILY #30 tablet Ketoconazole 2% [Nizoral] 1 applic TP BID #60 tube
[2019-04-15] MEDS: LOVENOX SUB-Q SCH (09:59)
[2019-04-15] MEDS: COREG PO SCH (10:00)
[2019-04-15] MEDS: K-DUR PO SCH (10:00)
[2019-04-15 10:01] VITALS: BP 106/68
[2019-04-15] MEDS: ENTRESTO 49-51 MG PO SCH (10:03)
[2019-04-15] MEDS: NIZORAL TP SCH (10:04)
[2019-04-15] MEDS: SODIUM CHLORIDE FLUSH SYRINGE 10 ML IV SCH (10:04)
[2019-04-15] MEDS: LASIX IV SCH (10:04)
[2019-04-15] MEDS: PULMICORT IH SCH (10:39)
--- NOTE | 2019-04-15 10:44 | Progress Note ---
Assessment and Plan Syncope, iatrogenic versus vasovagal. Hx of Dilated CMP, resolving interrogation reveals a normal device function; no evidence of tachycardia or bradycardia arrhythmias. Presence of AICD ([place]) Hypertension but hypotensive on presentation An echocardiogram shows a normal LVEF 50-55%. Recommendations: Carvedilol has been reduced to 6.25mg, Entresto has been reduced to 24 mg, and metolazone should be stopped. Patient is stable for cardiac discharge. Follow up with Dr Otero on at 310 pm. Subjective Date of service: 04/15/19 Principal diagnosis: syncope, hypokalemia, T2DM Interval history: Patient is resting in bed comfortably. She has no complaints. For planned discharge home today. Objective Vital Signs Temp Pulse Pulse Pulse Resp BP BP 04/15/19 10:00 69 106/68 04/15/19 06:02 99.2 F 58 L 20 111/62 04/15/19 01:07 97.6 F 56 L 20 111/63 04/15/19 00:00 56 L 62 62 04/14/19 22:17 63 106/53 04/14/19 20:37 98.1 F 56 L 20 97/40 04/14/19 17:25 98.0 F 62 19 106/53 04/14/19 16:00 54 L 04/14/19 12:36 98.9 F 56 L 19 80/32 04/14/19 12:00 18 Pulse Ox 04/15/19 10:00 04/15/19 06:02 97 04/15/19 01:07 99 04/15/19 00:00 04/14/19 22:17 04/14/19 20:37 98 04/14/19 17:25 99 04/14/19 16:00 04/14/19 12:36 99 04/14/19 12:00 - Physical Examination General: No Apparent Distress HEENT: Positive: PERRL Neck: Positive: trachea midline Cardiac: Positive: Reg Rate and Rhythm Lungs: Positive: Decreased Breath Sounds Neuro: Positive: Grossly Intact Extremities: Absent: edema
== END 2019-04-15 14:30 | disposition home or self-care (01) | DRG 315 ==
LOC: ED 19:23 → 4A 22:53
PROVIDERS: ADMIT Family Medicine; ATTEND Family Medicine
PROC: 4B02XTZ Measurement of Cardiac Defibrillator, External Approach (ICD-10-PCS; principal; 2019-04-13)
DX: I95.9 Hypotension, unspecified (principal); I50.22 Chronic systolic (congestive) heart failure; I42.0 Dilated cardiomyopathy; J44.0 Chronic obstructive pulmonary disease with (acute) lower respiratory infection; R55 Syncope and collapse; I11.0 Hypertensive heart disease with heart failure; E11.9 Type 2 diabetes mellitus without complications; Z96.612 Presence of left artificial shoulder joint; E87.6 Hypokalemia; J20.9 Acute bronchitis, unspecified; K13.0 Diseases of lips; Z86.79 Personal history of other diseases of the circulatory system; I25.2 Old myocardial infarction; Z95.810 Presence of automatic (implantable) cardiac defibrillator; Z82.5 Family history of asthma and other chronic lower respiratory diseases; Z82.49 Family history of ischemic heart disease and other diseases of the circulatory system; Z80.1 Family history of malignant neoplasm of trachea, bronchus and lung; Z79.84 Long term (current) use of oral hypoglycemic drugs
CPT/HCPCS: 36415; 70450; 71045; 72125; 80048; 80053; 80061; 80307; 80320; 82140; 82962; 83036; 83880; 84132; 84439; 84443; 84484; 85025; 85610; 85670; 85730; 87040; 93005; 93010; 93306; 93880; 94640; 96360; G0378; G0480; J1650; J1940; J3480; J7030

== ENCOUNTER 2019-10-25 15:12 | Emergency (ER) | payer OTHER ==
--- NOTE | 2019-10-25 17:59 | XRay Report ---
CHEST 2 VIEWS INDICATION / CLINICAL INFORMATION: Chest Pain. COMPARISON: 04/12/19. FINDINGS: SUPPORT DEVICES: There is a single-lead left subclavian ICD with the tip of the pacing lead overlying the right ventricular apex. HEART / MEDIASTINUM: The heart size and pulmonary vasculature are normal. The aorta is normal in toi herb. LUNGS / PLEURA: No significant pulmonary or pleural abnormality. No pneumothorax. ADDITIONAL FINDINGS: There is a left shoulder prosthesis. IMPRESSION: No acute abnormality or significant change. Signer Name: Jc Coon MD Signed: 10/25/2019 5:55 PM Workstation Name: [id number]
--- NOTE | 2019-10-25 18:35 | Emergency Department Report ---
ED Shortness of Breath HPI - General Chief Complaint: Recheck/Abnormal Lab/Rx Stated Complaint: REFERRRAL FROM DR. AZAR Time Seen by Provider: 10/25/19 18:31 Source: patient Mode of arrival: Ambulatory Limitations: No Limitations - History of Present Illness Initial Comments: Mrs. Jackson is a 63-year-old female with history of CHF COPD CAD/MD, hypertensi on, AICD in place who presents with cough for the past 6 weeks. She has had 6 weeks of cough wheezing congestion in spite antibiotics and steroids provided by PCP 6 weeks ago. She returned for follow-up appointment with PCP today. She denies chest pain. She has cough with sputum production. She has been compliant with her medication. Denies leg swelling. Her PCP Dr. Lazo desired to work-up in the emergency department for possible admission. Patient repeatedly declined admission to the hospital. She states that she feels fine if she sits up. MD Complaint: cough -: Gradual, week(s) (6) Severity: mild Consistency: constant Improves With: other (Upright position) Known History Of: COPD, congestive heart failure Context: recent URI Associated Symptoms: denies other symptoms - Related Data Home Medications Medication Instructions Recorded Confirmed Last Taken Metformin HCl [metFORMIN] 1,000 mg PO BID 04/12/19 04/12/19 Unknown Omeprazole 40 mg PO DAILY 04/12/19 04/12/19 Unknown Pregabalin [Lyrica] 50 mg PO BID 04/12/19 04/12/19 Unknown raNITIdine HCl [Zantac] 1 tab PO DAILY 04/12/19 04/12/19 Unknown Previous Rx's Medication Instructions Recorded Last Taken Type Budesonide [Pulmicort Respules] 0.5 mg IH Q12HRT nebu 04/15/19 Unknown Rx Furosemide [Lasix TAB] 20 mg PO DAILY #30 tablet 04/15/19 Unknown Rx Ketoconazole 2% [Nizoral] 1 applic TP BID #60 tube 04/15/19 Unknown Rx Potassium Chloride [K-Dur] 20 meq PO QDAY #20 tablet 04/15/19 Unknown Rx Sacubitril/Valsartan [Entresto 1 each PO BID #30 tablet 04/15/19 Unknown Rx 49-51 mg] carvediloL [Coreg] 3.125 mg PO BID #60 tablet 04/15/19 Unknown Rx metFORMIN [Glucophage] 1,000 mg PO BIDDIAB #60 tablet 04/15/19 Unknown Rx DOXYCYCLINE Hyclate [Vibramycin 100 mg PO Q12HR 7 Days #14 capsule 10/25/19 Unknown Rx CAP] Prednisone [predniSONE 10 mg 10 mg PO .TAPER #1 tab.ds.pk 10/25/19 Unknown Rx (6-Day Pack, 21 Tabs)] Allergies Allergy/AdvReac Type Severity Reaction Status Date / Time No Known Allergies Allergy Unverified 04/12/19 19:47 ED Review of Systems ROS: Stated complaint: REFERRRAL FROM DR. AZAR Other details as noted in HPI Comment: All other systems reviewed and negative Constitutional: denies: fever, malaise ENT: denies: ear pain Respiratory: cough, wheezing. denies: shortness of breath Cardiovascular: denies: chest pain ED Past Medical Hx - Past Medical History Previous Medical History?: Yes Hx Hypertension: Yes Hx Heart Attack/AMI: Yes Hx Congestive Heart Failure: Yes Hx COPD: Yes - Surgical History Additional Surgical History: pacemaker/defibrilator. - Social History Smoking Status: Former Smoker - Medications Home Medications: Home Medications Medication Instructions Recorded Confirmed Last Taken Type Metformin HCl [metFORMIN] 1,000 mg PO BID 04/12/19 04/12/19 Unknown History Omeprazole 40 mg PO DAILY 04/12/19 04/12/19 Unknown History Pregabalin [Lyrica] 50 mg PO BID 04/12/19 04/12/19 Unknown History raNITIdine HCl [Zantac] 1 tab PO DAILY 04/12/19 04/12/19 Unknown History Budesonide [Pulmicort Respules] 0.5 mg IH Q12HRT nebu 04/15/19 Unknown Rx Furosemide [Lasix TAB] 20 mg PO DAILY #30 tablet 04/15/19 Unknown Rx Ketoconazole 2% [Nizoral] 1 applic TP BID #60 tube 04/15/19 Unknown Rx Potassium Chloride [K-Dur] 20 meq PO QDAY #20 tablet 04/15/19 Unknown Rx Sacubitril/Valsartan [Entresto 1 each PO BID #30 tablet 04/15/19 Unknown Rx 49-51 mg] carvediloL [Coreg] 3.125 mg PO BID #60 tablet 04/15/19 Unknown Rx metFORMIN [Glucophage] 1,000 mg PO BIDDIAB #60 tablet 04/15/19 Unknown Rx DOXYCYCLINE Hyclate [Vibramycin 100 mg PO Q12HR 7 Days #14 capsule 10/25/19 Unknown Rx CAP] Prednisone [predniSONE 10 mg 10 mg PO .TAPER #1 tab.ds.pk 10/25/19 Unknown Rx (6-Day Pack, 21 Tabs)] ED Physical Exam - General Limitations: No Limitations General appearance: alert, in no apparent distress, other (Speaking full word sentences) - Head Head exam: Present: atraumatic, normocephalic - Eye Eye exam: Present: normal appearance - ENT ENT exam: Present: mucous membranes moist - Neck Neck exam: Present: normal inspection, full ROM - Respiratory Respiratory exam: Present: wheezes, rhonchi, prolonged expiratory. Absent: respiratory distress, rales, chest wall tenderness, accessory muscle use, decreased breath sounds - Cardiovascular Cardiovascular Exam: Present: regular rate, normal rhythm, normal heart sounds. Absent: systolic murmur, diastolic murmur, rubs, gallop - GI/Abdominal GI/Abdominal exam: Present: soft, normal bowel sounds. Absent: distended, tend erness, guarding, rebound - Extremities Exam Extremities exam: Present: normal inspection - Neurological Exam Neurological exam: Present: alert, oriented X3 - Psychiatric Psychiatric exam: Present: normal affect, normal mood - Skin Skin exam: Present: warm, dry, intact, normal color. Absent: rash ED Course Vital Signs 10/25/19 15:25 Temperature 98.7 F Pulse Rate 83 Respiratory 13 Rate Blood Pressure 147/76 [Left] O2 Sat by Pulse 98 Oximetry ED Medical Decision Making - Lab Data Result diagrams: 10/25/19 18:42 10/25/19 18:42 - EKG Data 10/25/19 18:35 EKG obtained at 1552 Normal sinus rhythm rate 70 bpm normal axis normal intervals no ST elevation poor R wave progression in anterior leads QS complexes in V1 V2 Critical care attestation.: If time is entered above; I have spent that time in minutes in the direct care of this critically ill patient, excluding procedure time. ED Disposition Clinical Impression: COPD (chronic obstructive pulmonary disease) with acute bronchitis Disposition: - TO HOME OR SELFCARE Is pt being admited?: No Does the pt Need Aspirin: No Condition: Stable Instructions: Acute Bronchitis (ED) Prescriptions: Prednisone [predniSONE 10 mg (6-Day Pack, 21 Tabs)] 10 mg PO .TAPER #1 tab.ds.pk DOXYCYCLINE Hyclate [Vibramycin CAP] 100 mg PO Q12HR 7 Days #14 capsule Referrals: JULIET LAZO MD [Staff Physician] - 7-10 days
[2019-10-25 19:33] LABS: Basophils # (Auto) 0.1 K/mm3 (0.0-0.1); Basophils % (Auto) 1.3 % (0.0-1.8); Eosinophils # (Auto) 0.1 K/mm3 (0.0-0.4); Eosinophils % (Auto) 1.2 % (0.0-4.3); Hematocrit 39.8 % (30.3-42.9); Hemoglobin 12.5 gm/dl (10.1-14.3); Lymphocytes # (Auto) 3.2 K/mm3 (1.2-5.4); Lymphocytes % (Auto) 43.3 % (13.4-35.0); Mean Corpuscular HGB Conc 31 % (30-34); Mean Corpuscular Volume 78 fl (79-97); Monocytes # (Auto) 0.4 K/mm3 (0.0-0.8); Platelet Count 196 K/mm3 (140-440)
[2019-10-25 19:35] LABS: BUN/Creatinine Ratio 9; Blood Urea Nitrogen 6 mg/dL (7-17); Calcium 9.2 mg/dL (8.4-10.2); Hemolysis Index 109
[2019-10-25 20:04] VITALS: BP 136/72
== END 2019-10-25 20:05 | disposition home or self-care (01) ==
LOC: ED 15:12
DX: J20.9 Acute bronchitis, unspecified (principal); J44.9 Chronic obstructive pulmonary disease, unspecified
CPT/HCPCS: 36415; 71046; 80048; 83880; 85025; 93005; 93010; 99284

== ENCOUNTER 2020-12-21 05:21 | Emergency (ER) | payer OTHER ==
[2020-12-21 09:01] VITALS: BP 127/67
[2020-12-21 09:20] LABS: Bilirubin,Urine NEG (Negative); Blood,Urine NEG (Negative); Color,Urine Yellow (Yellow); Mucus,Urine FEW /HPF; Protein,Urine <15 mg/dL mg/dL (Negative); Urobilinogen,Urine < 2.0 mg/dL (<2.0)
--- NOTE | 2020-12-21 10:40 | Emergency Department Report ---
ED General Adult HPI - General Chief complaint: Abdominal Pain Stated complaint: URINE INFECTION Time Seen by Provider: 12/21/20 10:26 Source: patient Mode of arrival: Ambulatory Limitations: No Limitations - History of Present Illness Initial comments: 65 y/o female pt w/ hx of diabetes, COPD, and congestive heart failure presents to the emergency department with complaints of itching/burning with urination for approximately a week and a half. Patient was evaluated by her primary care physician 5 days ago, at which time she was diagnosed with a urinary tract infection and prescribed Flagyl. Patient states her symptoms have failed to improve. Blood glucose levels have been stable at home. She has been compliant with her medication regimen. She is unsure whether or not she takes a sulfonylurea. Patient is not sexually active. Denies fever, chills, nausea, vomiting, diarrhea, constipation, abdominal pain, vaginal discharge, vaginal bleeding. Denies all other complaints at this time. - Related Data Home Medications Medication Instructions Recorded Confirmed Last Taken Metformin HCl [metFORMIN] 1,000 mg PO BID 04/12/19 04/12/19 Unknown Omeprazole 40 mg PO DAILY 04/12/19 04/12/19 Unknown Pregabalin [Lyrica] 50 mg PO BID 04/12/19 04/12/19 Unknown raNITIdine HCL [Zantac] 1 tab PO DAILY 04/12/19 04/12/19 Unknown Previous Rx's Medication Instructions Recorded Last Taken Type Budesonide [Pulmicort Respules] 0.5 mg IH Q12HRT nebu 04/15/19 Unknown Rx Furosemide [Lasix TAB] 20 mg PO DAILY #30 tablet 04/15/19 Unknown Rx Ketoconazole 2% [Nizoral] 1 applic TP BID #60 tube 04/15/19 Unknown Rx Potassium Chloride [K-Dur] 20 meq PO QDAY #20 tablet 04/15/19 Unknown Rx Sacubitril/Valsartan [Entresto 1 each PO BID #30 tablet 04/15/19 Unknown Rx 49-51 mg] carvediloL [Coreg] 3.125 mg PO BID #60 tablet 04/15/19 Unknown Rx metFORMIN [Glucophage] 1,000 mg PO BIDDIAB #60 tablet 04/15/19 Unknown Rx DOXYCYCLINE Hyclate [Vibramycin 100 mg PO Q12HR 7 Days #14 capsule 10/25/19 Unknown Rx CAP] Prednisone [predniSONE 10 mg 10 mg PO .TAPER #1 tab.ds.pk 10/25/19 Unknown Rx (6-Day Pack, 21 Tabs)] Fluconazole [Diflucan TAB] 200 mg PO QDAY 14 Days tablet 12/21/20 Unknown Rx Sulfamethoxazole/Trimethoprim 1 each PO BID 5 Days tablet 12/21/20 Unknown Rx [Bactrim DS TAB] Allergies Allergy/AdvReac Type Severity Reaction Status Date / Time No Known Allergies Allergy Unverified 04/12/19 19:47 ED Review of Systems ROS: Stated complaint: URINE INFECTION Other details as noted in HPI Other: GENERAL: Negative for fever, chills, weight change, anorexia, fatigue. ENT: Negative for ear pain, difficulty hearing, sore throat, nasal congestion, epistaxis. CARDIOVASCULAR: Negative for chest pain, palpitations, lower extremity swelling. PULMONARY: Negative for cough, dyspnea, wheezing, orthopnea, cyanosis. GASTROINTESTINAL: Negative for abdominal pain, nausea, vomiting, diarrhea, constipation. GENITOURINARY: Positive for itching/burning. MUSCULOSKELETAL: Negative for joint pain, joint swelling, myalgias, back pain, neck pain. NEUROLOGICAL: Negative for headache, seizure, syncope, paresthesias, weakness. INTEGUMENTARY: Negative for erythema, rash, diaphoresis, laceration, ecchymosis. HEMATOLOGICAL: Negative for hemoptysis, hematemesis, hematochezia, hematuria. PSYCHIATRIC: Negative for hallucinations, suicidal ideation, homicidal ideation, anxiety, depression. ED Past Medical Hx - Past Medical History Hx Hypertension: Yes Hx Heart Attack/AMI: Yes Hx Congestive Heart Failure: Yes Hx COPD: Yes - Surgical History Additional Surgical History: pacemaker/defibrilator. - Social History Smoking Status: Former Smoker - Medications Home Medications: Home Medications Medication Instructions Recorded Confirmed Last Taken Type Metformin HCl [metFORMIN] 1,000 mg PO BID 04/12/19 04/12/19 Unknown History Omeprazole 40 mg PO DAILY 04/12/19 04/12/19 Unknown History Pregabalin [Lyrica] 50 mg PO BID 04/12/19 04/12/19 Unknown History raNITIdine HCL [Zantac] 1 tab PO DAILY 04/12/19 04/12/19 Unknown History Budesonide [Pulmicort Respules] 0.5 mg IH Q12HRT nebu 04/15/19 Unknown Rx Furosemide [Lasix TAB] 20 mg PO DAILY #30 tablet 04/15/19 Unknown Rx Ketoconazole 2% [Nizoral] 1 applic TP BID #60 tube 04/15/19 Unknown Rx Potassium Chloride [K-Dur] 20 meq PO QDAY #20 tablet 04/15/19 Unknown Rx Sacubitril/Valsartan [Entresto 1 each PO BID #30 tablet 04/15/19 Unknown Rx 49-51 mg] carvediloL [Coreg] 3.125 mg PO BID #60 tablet 04/15/19 Unknown Rx metFORMIN [Glucophage] 1,000 mg PO BIDDIAB #60 tablet 04/15/19 Unknown Rx DOXYCYCLINE Hyclate [Vibramycin 100 mg PO Q12HR 7 Days #14 capsule 10/25/19 Unknown Rx CAP] Prednisone [predniSONE 10 mg 10 mg PO .TAPER #1 tab.ds.pk 10/25/19 Unknown Rx (6-Day Pack, 21 Tabs)] Fluconazole [Diflucan TAB] 200 mg PO QDAY 14 Days tablet 12/21/20 Unknown Rx Sulfamethoxazole/Trimethoprim 1 each PO BID 5 Days tablet 12/21/20 Unknown Rx [Bactrim DS TAB] ED Physical Exam - General Limitations: No Limitations - Other Other exam information: General: Awake, appropriately interactive, no acute distress. Neck: Supple. Full range of motion intact. Cardiovascular: Normal peripheral perfusion. Pulmonary: No respiratory distress. Patient is speaking normally without use of accessory muscles. Abdomen: Soft, nontender, nondistended. No guarding, rigidity, or rebound. Skin: No apparent rashes or lesions. Neurological: No facial asymmetry. Speech is clear. Follows commands. Patient is alert and oriented. Musculoskeletal: Moves all four extremities spontaneously with normal range of motion. Psych: Cooperative. Appropriate mood and affect. ED Course Vital Signs 12/21/20 12/21/20 05:59 09:00 Temperature 98.3 F Pulse Rate 58 L 78 Respiratory 18 15 Rate Blood Pressure 127/67 Blood Pressure 117/68 [Left] O2 Sat by Pulse 96 99 Oximetry ED Medical Decision Making - Medical Decision Making Differential diagnosis including but not limited to: pyelonephritis, urinary tract infection, pelvic inflammatory disease, candidiasis On reevaluation, patient remains stable. Repeat abdominal exam is benign. Fingerstick BGL obtained in triage prior to MSE was 125. Tolerating oral intake without difficulty. Urinalysis shows trace leukocyte esterase and budding yeast. She has reportedly been taking Flagyl for her UTI. Patient has been instructed to discontinue Flagyl. She will be started on Diflucan per current IDSA symptomatic candiduria guidelines as well as Bactrim for possible concomitant bacterial infection in the setting of patient's advanced age/diabetes. No clinical indication for further diagnostic work-up on an emergent basis at this time. Patient will be discharged home to follow-up with her primary care provider next week. Patient expressed understanding and is agreeable to plan of care. Strict return precautions provided. Repeat exam is unremarkable and benign. History, exam, diagnostic testing, and current condition do not suggest worrisome pathology to warrant further testing, continued ED treatment, admission, or surgical evaluation at this point. Given the low probability of a significant medical illness, it would be more likely to result in harm than benefit to perform further testing at this stage. Discussed findings, presumptive diagnosis, need for follow-up and specific signs/symptoms that should prompt immediate return to the emergency department. Instructions were explained in detail to the patient in addition to giving written discharge information. Patient expressed understanding and was given the opportunity to ask questions, all of which were satisfactorily answered prior to discharge home. Critical care attestation.: If time is entered above; I have spent that time in minutes in the direct care of this critically ill patient, excluding procedure time. ED Disposition Clinical Impression: Candiduria, History of diabetes mellitus Urinary tract infection Qualifiers: Urinary tract infection type: site unspecified Hematuria presence: without hematuria Qualified Code(s): N39.0 - Urinary tract infection, site not specified Disposition: TO HOME OR SELFCARE Is pt being admited?: No Does the pt Need Aspirin: No Condition: Stable Instructions: Urinary Tract Infection, Adult, Abdominal Pain (ED) Additional Instructions: Take Bactrim with food as directed. Take Diflucan as directed. Rest. Drink plenty fluids. Monitor blood glucose levels closely. Follow-up with your primary care provider next week. Call today to schedule an appointment. Return to the emergency department immediately for new or worsening symptoms. Prescriptions: Sulfamethoxazole/Trimethoprim [Bactrim DS TAB] 1 each PO BID 5 Days tablet Fluconazole [Diflucan TAB] 200 mg PO QDAY 14 Days tablet Referrals: [facility] [Provider Group] - 3-5 Days Time of Disposition: 10:45
== END 2020-12-21 10:58 | disposition home or self-care (01) ==
LOC: ED 05:21
DX: N39.0 Urinary tract infection, site not specified (principal); B37.9 Candidiasis, unspecified; E11.9 Type 2 diabetes mellitus without complications; I11.0 Hypertensive heart disease with heart failure; I50.9 Heart failure, unspecified; I25.2 Old myocardial infarction; J44.9 Chronic obstructive pulmonary disease, unspecified; Z87.891 Personal history of nicotine dependence; Z98.890 Other specified postprocedural states; Z79.899 Other long term (current) drug therapy
CPT/HCPCS: 81001; 82962; 87086